=== PATIENT | male | born 1980 | race Caucasian/White ===

== ENCOUNTER 2021-04-03 08:04 | Emergency (ER) | payer OTHER ==
[~2021-04-03] VITALS: Ht 177.8 cm; Wt 104.3 kg
[2021-04-03 08:11] VITALS: BP 155/88
--- NOTE | 2021-04-03 08:18 | NUR ---
SENT TO LOBBY TO WAIT FOR AVAILABLE BED.
--- NOTE | 2021-04-03 09:03 | NUR ---
41/M C/O FINGER LACERATION TO LEFT INDEX FINGER. STATES HE WAS MOVING PIPES AT WORK AND FINGER GOT CRUSHED. NO BLEEDING AT THIS TIME, LAST TDAP OVER 20 YEARS AGO. ROM LIMITED DUE TO PAIN, CAP REFILL LESS THAN 2 SECONDS, PULSES AND SENSATION EQUAL BILATERALLY.
--- NOTE | 2021-04-03 09:06 | NUR ---
applied dressing to left 2nd digit without any issues
[2021-04-03 09:12] VITALS: BP 155/88
--- NOTE | 2021-04-03 09:12 | NUR ---
Patient discharged with v/s stable. Written and verbal after care instructions given and explained. Patient verbalized understanding. Ambulatory with steady gait. All questions addressed prior to discharge. Advised to follow up with PMD.
== END 2021-04-03 09:12 | disposition home or self-care (01) ==
LOC: EDBD 08:04 → MED 08:04
DX: S61.211A Laceration without foreign body of left index finger without damage to nail, initial encounter (principal); X58.XXXA Exposure to other specified factors, initial encounter; Y93.89 Activity, other specified; Y92.89 Other specified places as the place of occurrence of the external cause; Y99.8 Other external cause status
CPT/HCPCS: 90471; 90715; 99283